=== PATIENT | female | born 1970 | race Hispanic/Latino ===

== ENCOUNTER → 2018-03-28 | Outpatient (CLI) | payer BC | END | disposition home or self-care (01) | LOC: RAH 15:11 | PROVIDERS: ATTEND Obstetrics & Gynecology | DX: R92.8 Other abnormal and inconclusive findings on diagnostic imaging of breast (principal); Z98.82 Breast implant status | CPT/HCPCS: 77066 ==

== ENCOUNTER → 2019-04-01 | Outpatient (CLI) | payer BC | END | disposition home or self-care (01) | LOC: RAH 08:47 | PROVIDERS: ATTEND Internal Medicine | DX: R92.8 Other abnormal and inconclusive findings on diagnostic imaging of breast (principal); Z98.82 Breast implant status | CPT/HCPCS: 77066 ==

== ENCOUNTER → 2021-01-10 | Outpatient (CLI) | payer BC | END | disposition home or self-care (01) | LOC: RAH 09:51 | PROVIDERS: ATTEND Obstetrics & Gynecology | DX: N61.1 Abscess of the breast and nipple (principal); Z98.82 Breast implant status | CPT/HCPCS: 76641; 77066 ==

== ENCOUNTER → 2023-12-05 | Outpatient (CLI) | payer OTHER | END | disposition home or self-care (01) | LOC: OIH 10:46 | PROVIDERS: ATTEND Family Medicine | DX: Z13.6 Encounter for screening for cardiovascular disorders (principal) | CPT/HCPCS: 75571 ==

== ENCOUNTER → 2024-03-28 | Outpatient (CLI) | payer BC, OTHER | END | disposition home or self-care (01) | LOC: RAH 13:41 | PROVIDERS: ATTEND Obstetrics & Gynecology | DX: R93.89 Abnormal findings on diagnostic imaging of other specified body structures (principal); D25.9 Leiomyoma of uterus, unspecified; N85.2 Hypertrophy of uterus | CPT/HCPCS: 76830; 76856 ==

== ENCOUNTER → 2025-04-06 | Outpatient (CLI) | payer BC, OTHER ==
--- NOTE | 2025-04-07 09:55 | HMCIMG ---
MAMMO SCREENING BILATERAL HISTORY: Screening mammogram. COMPARISON: 04/04/2024 TECHNIQUE: Bilateral screening mammogram with CAD was performed with craniocaudal and mediolateral oblique projections. FINDINGS: There are scattered areas of fibroglandular density. There is no evidence of a dominant mass, or suspicious microcalcification. There is no evidence of nipple retraction or skin thickening. IMPRESSION: 1. Stable mammogram. Patient was entered into a reminder system with a target due date for their next mammogram. BI-RADS: CATEGORY 2: BENIGN FINDINGS Recommend monthly self breast exam as well as annual clinical examination. A negative x-ray should not delay biopsy if a dominant or clinically suspicious mass is present, since 8-10% of cancers are not identified by mammography. Dense breasts particularly, may obscure an underlying neoplasm. Some of these may be detected clinically and therefore, clinical examination is an essential part of breast evaluation.
== END | disposition home or self-care (01) ==
LOC: RAH 11:41
PROVIDERS: ATTEND Obstetrics & Gynecology
DX: Z12.31 Encounter for screening mammogram for malignant neoplasm of breast (principal); R92.323 Mammographic fibroglandular density, bilateral breasts
CPT/HCPCS: 77067

== ENCOUNTER → 2025-04-09 | Outpatient (CLI) | payer BC, OTHER ==
--- NOTE | 2025-04-09 10:42 | HMCIMG ---
DEXA BONE DENSITY SURVEY HISTORY: Menopause COMPARISON: None FINDINGS: Bone densitometry study was performed. Bone mineral density of the lumbar spine is 1.072 gram per centimeter square which corresponds to a T score of 0.2 and a Z score of 1.3. Bone mineral density of the left hip is 1.078 grams per centimeter square which corresponds to a T score of 0.9 and a Z score of 1.6. IMPRESSION: 1. Normal bone mineral density of the lumbar spine and left hip.
== END | disposition home or self-care (01) ==
LOC: RAH 09:20
PROVIDERS: ATTEND Obstetrics & Gynecology
DX: M81.0 Age-related osteoporosis without current pathological fracture (principal); Z78.0 Asymptomatic menopausal state
CPT/HCPCS: 77080